=== PATIENT | female | born 1940 | race Caucasian/White ===

== ENCOUNTER → 2017-02-18 | Outpatient (CLI) | payer OTHER ==
[~2017-02-18] MED LIST: ACETAMINOPHEN325 M1 PO; ARIMIDEX PO; BACTRIM DS TAB1 EACH PO; CALCIUM 600 +1 EAC1 PO; CEPHALEXIN 500500 M2 PO; DIOVAN HCT 3201 EACH PO; ENABLEX15 MG PO; EYE CAP PO; FISH OIL 1,001000 M1 PO; GRALISE600 MG PO; HYDROXYCHLOROQ200 M1 PO; LORTAB PO; LUNESTA3 MG PO; MEDROLDOSEPACK PO; METFORMIN HCL500 MG PO; MULTIVITAMINS PO; NAPROSYN500 MG PO; NEXIUM40 MG PO; NORFLEX100 MG PO; PERCOCET 5-3251 EACH PO; PROVENTIL HFA6.7 G1 IH; ROBAXIN 750 MG750 M1 PO; [UNRECOGNIZED DRUG - OTHER] PO
== END ==
LOC: RAD 07:44
DX: Z12.31 Encounter for screening mammogram for malignant neoplasm of breast (principal); Z85.3 Personal history of malignant neoplasm of breast

== ENCOUNTER → 2018-02-21 | Outpatient (CLI) | payer OTHER | LOC: RAD 02:17 | DX: Z12.31 Encounter for screening mammogram for malignant neoplasm of breast (principal); R92.1 Mammographic calcification found on diagnostic imaging of breast ==

== ENCOUNTER → 2018-02-23 | Outpatient (CLI) | payer OTHER | LOC: ULTRA 10:39 | DX: N63.10 Unspecified lump in the right breast, unspecified quadrant (principal) ==

== ENCOUNTER → 2019-03-27 | Outpatient (CLI) | payer OTHER | LOC: RAD 09:26 | DX: Z12.31 Encounter for screening mammogram for malignant neoplasm of breast (principal) ==

== ENCOUNTER → 2019-03-29 | Outpatient (CLI) | payer OTHER | LOC: ULTRA 14:10 | DX: R92.2 Inconclusive mammogram (principal) ==

== ENCOUNTER → 2020-05-28 | Outpatient (CLI) | payer OTHER | LOC: BC 10:25 | PROVIDERS: ATTEND Internal Medicine Hematology & Oncology | DX: Z12.31 Encounter for screening mammogram for malignant neoplasm of breast (principal) ==

== ENCOUNTER → 2021-06-02 | Outpatient (CLI) | payer OTHER | LOC: BC 13:07 | PROVIDERS: ATTEND Internal Medicine Hematology & Oncology | DX: Z12.31 Encounter for screening mammogram for malignant neoplasm of breast (principal) ==